=== PATIENT | male | born 1985 | race Hispanic/Latino ===

== ENCOUNTER 2017-08-16 13:34 | Outpatient (CLI) | payer BC ==
--- NOTE | 2017-08-17 13:41 | MRI ---
MRI LUMBAR SPINE WITHOUT CONTRAST: HISTORY: Lumbar radiculopathy (M54.16). COMPARISON: None. FINDINGS: There is increased signal in the interspinous ligaments between L4 and L5. The adjacent paraspinal m usculature is without significant edema. There is low grade edema within the L4-L5 facet joints. The conus medullaris terminates at the L1 ve rtebral body. The aortic contour is normal. No retroperitoneal adenopathy. The paraspinal musculature is normal. No hydronephrosis. Levels are as follows: T12-L1: Normal disks. No neural foraminal or spinal canal narrowing. L1-L2: Normal disks. No neural foraminal or spinal canal narrowing. L2-L3: Normal disks. No neural foraminal or spinal canal narrowing. L3-L4: Normal disks. no neural foraminal or spinal canal narrowing. L4-L5: Mild disk desiccation. There is a right subforaminal and extraforaminal annular fissure supe rimposed on a small posterior disk osteophyte complex. Spinal canal not significantly narrowed. No significant neural foraminal narrowing on the left with mild on the right. L5-S1: There is circumferential disk bulge. There is central, left paracentral, and subforaminal po sterior disk protrusion, superimposed on a posterior disk osteophyte complex. There is moderate to s evere left and moderate right-sided neural foraminal narrowing with abutment of the left L5 and S1 ne rve roots. IMPRESSION: 1. Spondylosis centered at L4-L5 and at L5-S1 may be causing the patient's symptoms. 2. Abnormal edema within the intraspinous ligaments at L4-L5 with trace edema at L3-L4, may be seque la of a recent injury. POS: [facility]
== END 2017-08-16 13:35 | disposition home or self-care (01) ==
LOC: SCSMRI 13:34
PROVIDERS: ATTEND Family Medicine
DX: G57.02 Lesion of sciatic nerve, left lower limb (principal); M47.27 Other spondylosis with radiculopathy, lumbosacral region; M47.26 Other spondylosis with radiculopathy, lumbar region; R60.0 Localized edema
CPT/HCPCS: 72148

== ENCOUNTER 2023-02-08 15:17 | Outpatient (CLI) | payer OTHER | END 2023-02-08 15:18 | disposition home or self-care (01) | LOC: SCSRAD 15:17 | PROVIDERS: ATTEND Nurse Practitioner Family | DX: M25.472 Effusion, left ankle (principal); M25.531 Pain in right wrist; M79.89 Other specified soft tissue disorders ==